=== PATIENT | male | born 1960 | race Caucasian/White ===

== ENCOUNTER 2023-01-19 13:38 | Outpatient (CLI) | payer OTHER ==
[2023-01-19 14:21] VITALS: BP 126/82
--- NOTE | 2023-01-19 14:21 | SLEEP CARE CONSULTATION ---
Information from patient questionnaire entered by Radha Duran. I have reviewed and concur with the information entered by Radha Duran. This document represents the service I personally performed and the decisions made by me, Tamika Villegas ARNP. History of Present Illness Service Date and Time: 01/19/2023 1338 Reason for Visit: New patient, sleep apnea on CPAP therapy, Re-establish care Chief Complaint: reports: Other (SLEEP APNEA DIAGNOSED 2009) Date of Onset: 10/2009 Usual bedtime: 2100 Time it takes to fall asleep: 15MIN Snores at night: Yes Observed to quit breathing while asleep: Yes Sleeps alone due to snoring: No Number of times waking at night: 1 Reasons for waking at night: reports: Bathroom Toss, Turn, or Twitch while sleeping: Yes Recalls having dreams: Yes Usually gets out of bed at: 0630 Feels refreshed in the morning: Yes Morning headache: No Sleepy or fatigued during the day: No Ever fallen asleep while driving: No Takes day naps: No Dreams during day naps: No Prior sleep studies: Yes Year and Where: 2009 [place] Additional HPI information: LEATHA DE ANDA was previously diagnosed to have moderate, AHI 16, obstructive sleep apnea-hypopnea syndrome in a study dated 10/07/2009 at [facility] and comes in today to re-establish care for CPAP therapy. He states he used to come to [facility] but in 2019 his primary referred him to [facility]. They closed down last July and he comes back to re-establish care with us. - Parasomnia Symptoms Ever been unable to move upon waking from sleep: No Walks in sleep: No Talks in sleep: No Ever acted out dreams in sleep: No Ever felt weak in the knees when startled or emotional: No Bothered by creepy, crawly, restless sensations in legs: No Problems with memory or concentration: No CPAP Compliance Data - Data Reviewed with Patient Average duration of nightly device use: 8 hours 32 minutes Compliance rate %: 99 (89/90 days used) Current pressure setting (cmH2O): 7-11 Average residual AHI: 2.9 Central apnea: 0.4 Obstructive apnea: 0.4 Hypopnea: 2.1 Average large leak: 0.3 L/min Compliance data discussion: He has a Resmed 10 that was updated in 2021. He gets his supplies from [employer]. He is using the full face Quattro, large cushion. He does have a backup mask if needed. He last changed his cushion on the first of the month. Subjective Patient concerns: reports: condensation in mask/hose (sometimes, depends on temperature of room). denies: aerophagia, mask discomfort, air blowing in eyes, mask leak noise, nasal congestion, dry mouth, nose, throat, epistaxis Observed to snore while using device: No (sometimes, 1-2 times a month) Current pressure setting perceived as: comfortable On therapy, patient: reports: sleeping better, awakening more refreshed, being more awake and alert during the day, more rested overall. denies: drowsiness while driving Initial [place] Sleepiness Scale score: 3 (01/19/23) Past Medical History Past Medical History: reports: Other (enlarged prostate; high cholesterol) Social History The patient's occupation is a RETIRED. Patient is and lives in [place]. Have you smoked in the past 12 months: No Years of smokin Quit date: 2010 Alcohol use: Yes Alcohol amount and frequency: 1 BEER EVERY EVENING Caffeine use: Yes Caffeine amount and frequency: 2 CUPS coffee in am, 1 tea in afternoon, PER DAY Family History Family history of sleep disordered breathing: No Allergies and Home Medications Known drug allergies: No Drug allergies reviewed: Yes Home medication list reviewed: Yes Allergy and home medication list: Medications: Aspirin 81 mg daily Finasteride Pravastatin Review of Systems Cardiovascular: denies: high blood pressure Respiratory: reports: shortness of breath, chronic cough Gastrointestinal: denies: heartburn Neurological: denies: headaches Psychiatric: denies: anxiety, depression Ear/Nose/Throat: reports: tonsillectomy Physical Exam Vital signs obtained and entered by: RADHA Motta MA Blood Pressure: 126/82 (LEFT ARM) Cuff size: long Heart Rate: 98 O2 Saturation: 95 Height: 6 ft Weight: 320 lb 6.4 oz Body Mass Index: 43.4 BMI Classification: Morbidly Obese Neck circumference: 21.5 Heart: regular rate and rhythm Lungs: clear bilaterally Impression and Plan 1. Obstructive Sleep Apnea-Hypopnea Syndrome, moderate, with good treatment compliance and good apnea control. On CPAP therapy, the patient has better sleep quality and is more rested overall. He states he uses his CPAP every night. He has significant improvement of his sleep apnea and is satisfied with current CP AP therapy. Patient states he occasionally gets some condensation in the tubing but as long as he runs a fan to keep the air circulating in his room it does not seem to accumulate. He knows how to adjust the temperature on the tubing and humidity if needed. Patient denies problems with oral dryness, nasal congestion, epistaxis, skin irritation or aerophagia. Patient's apnea severity and rational e for treatment to reduce apnea, improve sleep quality and reduce cardiovascular and cerebrovascular events was reviewed. I will update his prescription with his DME supplier and have him follow-up next year. He voiced understanding and agreement with the plan of care. 2. Obesity, unspecified. Currently patients BMI is 43.4. Obesity increases the risk of apnea, CPAP pressure requirements and overall health risks especially cardiovascular and diabetes. Thus patient is advised to lose weight. * Continue auto CPAP pressure at 7-11 cmH2O * Update supplies prescription * Notify me if snoring with mask or feeling that the pressure is too much or too little * Attempt to lose weight * Call this office if any problems using CPAP * Return for follow up in 1 year, or sooner if concerns arise Counseling Topics: Spare mask, Weight loss health impact Visit Type: In Office Time Spent with Patient (minutes): 31 Provider Statement: I spent 100% of the Face to Face Visit with the patient with greater than 50% spent counseling the patient and coordination of care.
== END 2023-01-19 13:39 | disposition home or self-care (01) ==
LOC: SC 13:38
PROVIDERS: ATTEND Nurse Practitioner Family
DX: G47.33 Obstructive sleep apnea (adult) (pediatric) (principal); E66.9 Obesity, unspecified; Z68.41 Body mass index [BMI] 40.0-44.9, adult; Z87.891 Personal history of nicotine dependence
CPT/HCPCS: 99203; 99212

== ENCOUNTER 2023-10-18 14:02 | Outpatient (CLI) | payer OTHER ==
--- NOTE | 2023-10-19 01:30 | CT Report ---
PROCEDURE: Chest WO INDICATIONS: ILD, persistent cough TECHNIQUE: A CT scan of the chest was performed. Intravenous contrast media was not administered. Images were re corded and evaluated at appropriate window settings. Reformats: axial MIP of the chest, coronal and s agittal. For radiation dose reduction, the following was used: automated exposure control, adjustment of mA and/or kV according to patient size. COMPARISON: None. FINDINGS: Image quality: Diagnostic. Chest wall and lower neck: No thyroid nodule which requires sonographic follow up. No axillary or sup raclavicular adenopathy by size. Lungs and pleura: No consolidation. No pleural effusions. No pneumothorax. Scattered pulmonary micro nodules measuring less than 3 mm. Mediastinum: Heart size is normal. No pericardial effusion. No large vessel abnormality. No mediastin al adenopathy by size criteria. Bones: No acute or suspicious osseous abnormality. Upper Abdomen: Unremarkable. IMPRESSION: Scattered pulmonary micronodules. If patient is high risk for lung malignancy, recommend follow-up CT chest in 12 months to demonstrate stability. No imaging evidence of interstitial lung disease as cli nically queried. Reviewed by: Shana Carcamo MD on 10/19/2023 12:28 AM KATHRYN Approved by: Shana Carcamo MD on 10/19/2023 12:28 AM KATHRYN Station ID: [id number]
== END 2023-10-18 14:03 | disposition home or self-care (01) ==
LOC: DI 14:02
PROVIDERS: ATTEND Internal Medicine
DX: R91.8 Other nonspecific abnormal finding of lung field (principal); J84.9 Interstitial pulmonary disease, unspecified

== ENCOUNTER 2024-02-22 15:19 | Outpatient (CLI) | payer OTHER ==
--- NOTE | 2024-02-22 16:01 | Sleep Patient Instructions ---
Sleep Center Visit Summary - Patient Visit Information Reason for Visit: Annual follow-up - Patient Instructions Additional Instructions: You will continue with CPAP therapy with pressure set at 7-11 cmH2O. A supply prescription will be updated with your DME. We encourage you to continue to try to lose weight. Please follow up with the sleep care office in 1 year. - Clinic Information Contact: [facility] [address] [place] [address] [email or web address] T: [phone]
--- NOTE | 2024-02-22 16:04 | SLEEP CARE CONSULTATION ---
Information from patient questionnaire entered by Radha Duran. I have reviewed and concur with the information entered by Radha Duran. This document represents the service I personally performed and the decisions made by , Tamika Villegas ARNP. History of Present Illness Service Date and Time: 02/22/2024 1519 Previous diagnosis: Moderate, Obstructive Sleep Apnea-Hypopnea Syndrome AHI: 16 (on 10/07/2009) Reason for follow up: annual (LAST SEEN 12/2022) Equipment type: CPAP (RESMED Airsense 10, s/u 03/2022, NEED MACHINE) Equipment obtained from: Other ([facility]; getting supplies) Mask style: Full face (Quattro) Backup mask available: Yes Last cushion change: twice a month Prior sleep studies: Yes Year and Where: 2009 [facility] additional information: LEATHA DE ANDA was diagnosed to have moderate, AHI 16, obstructive sleep apnea-hypopnea syndrome and returned today for CPAP therapy annual follow-up. Sleep Study - Results Prior sleep studies: Yes Year and Where: 2009 [facility] CPAP Compliance Data - Data Reviewed with Patient Average duration of nightly device use: 8 hours 52 minutes Compliance rate %: 99 (364/365 days used) Current pressure setting (cmH2O): 7-11 Average residual AHI: 2.8 Central apnea: 0.5 Obstructive apnea: 0.4 Hypopnea: 1.8 Average large leak: 0.5 L/min Subjective Missed days of use due to: reports: illness (bad cold) Patient concerns: denies: aerophagia, mask discomfort, air blowing in eyes, mask leak noise, condensation in mask/hose, nasal congestion, dry mouth, nose, throat, epistaxis Observed to snore while using device: No Current pressure setting perceived as: comfortable On therapy, patient: reports: sleeping better, awakening more refreshed, being more awake and alert during the day, more rested overall. denies: drowsiness while driving Initial [place] Sleepiness Scale score: 3 (01/19/23) Current [place] Sleepiness Scale score: 1 (02/22/24) Allergies and Home Medications Known drug allergies: No Drug allergies reviewed: Yes Home medication list reviewed: Yes (as listed) Allergy and home medication list: Allergies No Known Drug Allergies Allergy (Verified 02/20/24 11:11) Home Medications Medication Instructions Recorded Confirmed Last Taken Type Aspirin [[place]] See Rx Instructions .ROUTE .COMPLEX 01/19/23 02/22/24 Unknown History Finasteride [Propecia] See Rx Instructions .ROUTE .COMPLEX 01/19/23 02/22/24 Unknown History Loratadine/Pseudoephedrine See Rx Instructions .ROUTE .COMPLEX 01/19/23 02/22/24 Unknown History [Claritin-D 24 Hour Tablet] Pravastatin [Pravachol] See Rx Instructions .ROUTE .COMPLEX 01/19/23 02/22/24 Unknown History Finasteride [Proscar] See Rx Instructions .ROUTE .COMPLEX 02/22/24 02/22/24 Unknown History Losartan Potassium See Rx Instructions .ROUTE .COMPLEX 02/22/24 02/22/24 Unknown History Metformin HCl See Rx Instructions .ROUTE .COMPLEX 02/22/24 02/22/24 Unknown History Rosuvastatin Calcium See Rx Instructions .ROUTE .COMPLEX 02/22/24 02/22/24 Unknown History Tamsulosin [Flomax] See Rx Instructions .ROUTE .COMPLEX 02/22/24 02/22/24 Unknown History Review of Systems Review of systems same as previous: No (HBP,TYPE TWO DIABETES, ENLARGED PROSTATE) Physical Exam Vital signs obtained and entered by: RADHA Motta MA Blood Pressure: 153/89 (LEFT ARM) Cuff size: long Heart Rate: 90 O2 Saturation: 96 Height: 6 ft Weight: 311 lb 3.2 oz Weight change since last visit: 9 Body Mass Index: 42.2 BMI Classification: Morbidly Obese Impression and Plan 1. Obstructive Sleep Apnea-Hypopnea Syndrome, moderate, with good treatment compliance and good apnea control. On CPAP therapy, the patient has better sleep quality and is more rested overall. He has significant improvement of his sleep apnea and is satisfied with current CPAP therapy. He has no complaints or issues with CPAP use. He intends to use his CPAP long term care pharmacist. Patient's apnea severity and rationale for treatment to reduce apnea, improve sleep quality and reduce cardiovascular and cerebrovascular events was reviewed. I also reviewed the benefit of consistent device use of CPAP for hypertension, diabetes. 2. Obesity, unspecified. Currently patients BMI is 42.2. He has lost weight. He is watching his diet and moderate exercise. Obesity increases the risk of apnea, CPAP pressure requirements and overall health risks especially cardiovascular and diabetes. Thus patient is advised to lose weight. * Continue auto CPAP pressure at 7-11 cmH2O * Update supply prescription * Notify me if snoring with mask or feeling that the pressure is too much or too little * Attempt to lose weight * Call this office if any problems using CPAP * Return for follow up in 12 months, or sooner if concerns arise Counseling Topics: Spare mask, Weight loss health impact Prescriptions: Device supplies Follow up with Sleep Care in: 1 year Visit Type: In Office Time Spent with Patient (minutes): 20 Provider Statement: I spent 100% of the Face to Face Visit with the patient with greater than 50% spent counseling the patient and coordination of care.
[2024-02-22 16:13] VITALS: BP 153/89; O2SAT 96
== END 2024-02-22 15:20 | disposition home or self-care (01) ==
LOC: SC 15:19
PROVIDERS: ATTEND Nurse Practitioner Family
DX: G47.33 Obstructive sleep apnea (adult) (pediatric) (principal); E66.01 Morbid (severe) obesity due to excess calories; Z68.41 Body mass index [BMI] 40.0-44.9, adult
CPT/HCPCS: 99212; 99213